=== PATIENT | male | born 1955 | race African-American/Black ===

== ENCOUNTER 2018-01-09 09:02 | Day surgery (SDC) | payer BC, OTHER ==
[2018-01-08 11:02] VITALS: BMI 30.2
[2018-01-09] MEDS ORDERED: BUPIVACAINE HCL/PF 0.5% (5MG/ML) 10 ML VIAL ONE (09:57)
[2018-01-09] MEDS ORDERED: LIDOCAINE HCL 1%, 10 MG/ML (20ML VIAL) ONE (09:57)
[2018-01-09] MEDS ORDERED: DEXAMETHASONE SOD PHOSPHATE 4 MG/1 ML VIAL ONE (09:57)
[2018-01-09] MEDS ORDERED: MIDAZOLAM HCL 2 MG/2 ML SINGLE DOSE VIAL ONE ×2 (11:18)
[2018-01-09] MEDS ORDERED: PROPOFOL 20 ML ONE ×4 (11:18)
[2018-01-09] MEDS ORDERED: ceFAZolin SODIUM 1 GM VIAL ONE (11:37)
[2018-01-09] MEDS ORDERED: ceFAZolin SODIUM 1 GM VIAL IVPB ONE (11:39)
[2018-01-09] MEDS ORDERED: LIDOCAINE HCL 1%, 10 MG/ML (50 mL VIAL) IJ ONE (11:48)
[2018-01-09] MEDS ORDERED: BUPIVACAINE HCL/PF (5 MG/ML) 30 ML VIAL IJ ONE ×2 (11:48→12:33)
[2018-01-09] MEDS ORDERED: KETOROLAC TROMETHAMINE 30 MG/1 ML VIAL ONE (12:28)
[2018-01-09] MEDS ORDERED: BENZOIN TINCTURE SWABSTICK TP ONE (12:28)
[2018-01-09] MEDS ORDERED: DEXAMETHASONE SOD PHOSPHATE 4 MG/1 ML VIAL NR ONE (12:33)
--- NOTE | 2018-01-09 12:50 | OP ---
Operative Note - Note: Operative Date: 01/09/18 Pre-Operative Diagnosis: Hallux valgus left Operation: Ervin bunionectomy with 2 screw fixation. Implants: 2.4mm osteomed lag screw 18mm Post-Operative Diagnosis: Same as Pre-op Surgeon: Toyin Singh Histology Assistant: Miguel Esposito Anesthesia: MAC Estimated Blood Loss (mls): 10
[2018-01-09] MEDS ORDERED: oxyCODONE HCL 5 MG TABLET PO ONE (13:40)
[2018-01-09] MEDS ORDERED: oxyCODONE HCL 5 MG TABLET ONE (13:40)
[2018-01-09 14:34] VITALS: BP 133/83; PULSE 66; TEMP 97.3
--- NOTE | 2018-01-09 15:04 | OP ---
DATE OF OPERATION: 01/09/2018 SURGEON: Toyin Singh DPM ASSISTANTS: Dr. Nogueira, PGY3 and Miguel CONNOR Esposito PREOPERATIVE DIAGNOSIS: Left foot bunion. POSTOPERATIVE DIAGNOSIS: Left foot bunion. PROCEDURE: Left foot Ervin bunionectomy. ANESTHESIA: Local with MAC. PATHOLOGY: Bone and soft tissue. ESTIMATED BLOOD LOSS: 5 mL HEMOSTASIS: Left ankle tourniquet at 250 mmHg. MATERIALS USED: 2-0, 3-0, 4-0 and 5-0 Vicryl sutures, 2.4 18 mm OsteoMed black screws x2. Mastisol, Steri-Strips, Betadine soaked Adaptic and dry sterile dressing, 4x4, sterile gauze, Zoe and Gerard bandage. INJECTABLES: 16 mL of 1:1 mixture of 1% lidocaine plain and 0.5% Marcaine plain used preoperatively and 10 mL of 8:2 mixture of 0.5% Marcaine plain and 4 mg dexamethasone used postoperatively. CONDITION OF THE PATIENT: Stable. COMPLICATIONS: None. DESCRIPTION: The patient was brought to the operating room and placed on the operating room table in the supine position. A pneumatic ankle tourniquet was then placed on the patient's left ankle. Following IV sedation, local anesthesia was obtained using a 1:1 mixture of 1% lidocaine plain and 0.5% Marcaine plain preoperatively; 16 mL total was injected to the surgical site left foot. The left foot was then scrubbed, prepped and draped in the usual aseptic manner. An Esmarch bandage was then utilized to exsanguinate the patient's left foot and the tourniquet was inflated. Attention was first directed to the dorsal aspect of the first metatarsal head of the left foot where a linear incision was made medial and parallel to the tendon of extensor hallucis longus. The incision was then deepened through the subcutaneous tissue using sharp and blunt dissection. Care was taken to identify all vital neurovascular structures. All bleeders were then ligated and cauterized as necessary. At this time, a linear capsulotomy was then performed over the dorsal aspect of the first metatarsophalangeal joint. The periosteal and capsular structures were then carefully dissected medially and laterally, thus exposing the head of the first metatarsal. Attention was then directed to the medial aspect of the first metatarsal head. Using a sagittal saw, the medial prominence was then resected and passed from the operative field and sent to Pathology. Retraction was then directed for better visualization of the first metatarsal head. A [id number] Chevron type osteotomy with the long arm was then created utilizing the sagittal saw. The apex pointed distally. The capital fragment was then shifted laterally to improve the position of the great toe and then was impacted into the head of the metatarsal shaft using a 0.62 K-wire, which was used for temporary fixation across the osteotomy site. Next, using a 0.45 K-wire across the osteotomy site and a 2.4 18 mm OsteoMed lag screw was inserted to fixate across the osteotomy site. The 2nd screw, which was another 2.4 18 mm OsteoMed lag screw, was also used for secondary point of fixation and great compression was noted across the osteotomy site. The initial K-wires were then removed. The remaining rough edges of the first metatarsal head were then resected using a power dai and the bunion deformity was then vastly noted to be improved. The medial bone shells of the first metatarsal were then resected using a sagittal saw and passed from the operative field. Also the dorsal osteophytes were resected using a sagittal saw and all the sharp edges were smoothened using power dai. The wound was then irrigated with copious amount of normal saline. The periosteal and capsular structures were then reapproximated using a 2-0 and 3-0 Vicryl suture and prior to that, a small capsulorrhaphy was done on the medial aspect of the capsule and the capsular and subcutaneous tissue structures were closed using 2-0, 3-0, 4-0, 5-0 Vicryl sutures and the skin edges were reapproximated using 5-0 Vicryl sutures. Next, Mastisol and Steri-Strip was applied to the incision site. Postoperative injection, which was 10 mL of 8:2 mixture of 0.5% Marcaine plain and 4 mg dexamethasone was injected throughout the surgical site. Next, postoperative dressing, such as Betadine soaked Adaptic and 4x4 sterile gauze, Zoe and Gerard bandage was applied to the left foot and the left ankle tourniquet was deflated and immediate hyperemia was noted to all digits of the left foot. Patient tolerated the procedure and anesthesia well and was transferred to the recovery room with all vital signs stable and vascular status intact to all the left lower extremity. Following postoperative monitoring, the patient will be discharged home and was already given the instructions and prescriptions prior to the surgery. Dr. Nogueira, PGY3 for CONNOR French DPM [id number]
--- NOTE | 2018-01-13 18:47 | PATH ---
Surgical Pathology Report Patient Name: JORDEN RODRIGUEZ [facility] [place]. Rec. #: [id number] /Age/Gender: 1955 (Age: 62) / M Account: [id number] Location: [facility] SURGICAL Taken: 01/09/2018 Received: 01/09/2018 Reported: 01/13/2018 Physicians: Toyin Singh DPM Specimen(s) Received LEFT FOOT 1ST METATARSAL BONE Clinical History Left foot bunion first metatarsal Final Diagnosis FOOT, LEFT, BONE, FIRST METATARSAL, BUNIONECTOMY: BONE WITH DEGENERATIVE CHANGES. FRAGMENTS OF BENIGN DENSE FIBROCONNECTIVE TISSUE. Electronically Signed Cynthia Moore M.D. Gross Description Received in formalin labeled "left foot first metatarsal bone," is a 3.2 x 2.8 x 0.3 cm aggregate of bone and soft tissue fragments. [employer] Sw[employer] sections are submitted in one cassette, following decalcification. 01/12/2018 saudi01/12/2018
== END 2018-01-09 14:10 | disposition home or self-care (01) ==
LOC: JASU-SURG 09:02
PROVIDERS: ATTEND Podiatrist Foot Surgery
PROC: 0QSP04Z Reposition Left Metatarsal with Internal Fixation Device, Open Approach (ICD-10-PCS; principal; 2018-01-09 10:30)
DX: M20.12 Hallux valgus (acquired), left foot (principal); M21.612 Bunion of left foot
CPT/HCPCS: 73630-TC-LT; 88305-TC; 88311-TC